=== PATIENT | male | born 1950 ===

== ENCOUNTER 2022-05-21 09:21 | Outpatient (CLI) | payer OTHER | END 2022-05-21 09:25 | disposition home or self-care (01) | LOC: SONOGRAMA 09:21 | PROVIDERS: ATTEND Pathology Anatomic Pathology & Clinical Pathology | DX: D34 Benign neoplasm of thyroid gland (principal); E04.1 Nontoxic single thyroid nodule; E07.9 Disorder of thyroid, unspecified ==